=== PATIENT | male | born 1980 | race Caucasian/White ===

== ENCOUNTER 2024-10-26 06:18 | Day surgery (SDC) | payer BC, SELFPAY | END 2024-10-26 09:12 | disposition home or self-care (01) | LOC: GI 06:18 | PROVIDERS: ATTENDING PHYSICIAN Internal Medicine Gastroenterology | DX: Z12.11 Encounter for screening for malignant neoplasm of colon (principal); R19.4 Change in bowel habit; K64.8 Other hemorrhoids; K63.5 Polyp of colon | CPT/HCPCS: 45380; 88305 ==